=== PATIENT | male | born 1995 | race Caucasian/White ===

== ENCOUNTER 2016-11-12 22:29 | Emergency (ER) | payer OTHER ==
[2016-11-12] MEDS ORDERED: ACETAMINOPHEN 500 MG TAB PO ONE (22:53)
[2016-11-12] MEDS ORDERED: NS 1,000 ML IV ONE (22:53)
[2016-11-12 23:40] LABS: % IMMATURE GRANULYOCYTES 0.2 % (0.0-1.1); ABSOLUTE IMMATURE GRANULOCYTES 0.01 10^3/uL (0.00-0.10); ADD DIFF? NO; ADD MORPH? NO; ADD SCAN? NO; ATYPICAL LYMPHOCYTE FLAG 0 (0-99); FRAGMENT RBC FLAG 0 (0-99); HEMATOCRIT 42.2 % (40.0-51.0); HEMOGLOBIN 15.1 g/dL (13.7-17.5); LEFT SHIFT FLG 30 (0-99); LIPEMIA HEMOLYSIS FLAG 90 (0-99); MEAN CELL HEMOGLOBIN 31.4 pg (27.9-34.1); MEAN CELL HEMOGLOBIN CONCENTR. 35.8 g/dL (32.4-36.7); MEAN CELL VOLUME 87.7 fL (81.5-99.8); PLATELET CLUMPS FLAG 0 (0-99); PLATELET COUNT 143 10^3/uL (150-400); RED BLOOD CELL COUNT 4.81 10^6/uL (4.40-6.38); RED CELL DISTRIBUTION WIDTH 11.8 % (11.5-15.2)
[2016-11-12 23:50] LABS: ANION GAP 11 mEq/L (8-16); CALCIUM 9.3 mg/dL (8.5-10.4); CARBON DIOXIDE 24 mEq/l (22-31); CHLORIDE 98 mEq/L (97-110); CREATININE 0.9 mg/dL (0.7-1.3); GLOMERULAR FILTRATION RATE > 60; GLUCOSE 124 mg/dL (70-100); POTASSIUM 3.8 mEq/L (3.5-5.2); SODIUM 133 mEq/L (134-144)
--- NOTE | 2016-11-13 00:11 | EDPHY ---
H & P Stated Complaint: Fever, Neck pain, Headache Time Seen by Provider: 11/12/16 22:42 HPI/ROS: Chief Complaint: Fever, headache, neck pain HPI: 21-year-old male whose had 2 days of headache, fever to 103, pain in his neck and neck tightness. Pain at worst is about an 8/10. He did take 2 aspirin earlier today with minimal relief. Has had some dizziness. No nausea or vomiting. No vision or hearing changes. Denies any head trauma or other injuries. No ear pain. No sore throat pain. No known ill exposures. No skin rash. My ROS PMH: None Social History: No smoking, occasional alcohol, no recreational drug use Family History: non-contributory Physical Exam: Gen: Awake, Alert, No Distress HEENT: Nose: no rhinorrhea Eyes: PERRLA, EOMI Mouth: Moist mucosa oropharynx is negative Neck: Mild meningismus, no JVD Chest: nontender, lungs clear to auscultation Heart: S1, S2 normal, no murmur Abd: Soft, non-tender, no guarding Back: no CVA tenderness, no midline tenderness Ext: no edema, non-tender Skin: no rash Neuro: CN II-XII intact, Sensation grossly intact, Strength 5/5 in bilateral upper and lower extremities - Personal History Current Tetanus/Diphtheria Vaccine: Yes Current Tetanus Diphtheria and Acellular Pertussis (TDAP): Yes - Medical/Surgical History Hx Asthma: No Hx Chronic Respiratory Disease: No Hx Diabetes: No Hx Cardiac Disease: No Hx Renal Disease: No Hx Cirrhosis: No Hx Alcoholism: No Hx HIV/AIDS: No Hx Splenectomy or Spleen Trauma: No Other PMH: PMH: denies. PSH: denies - Social History Smoking Status: Never smoked Constitutional: Initial Vital Signs Temperature (C) 39.3 C H 11/12/16 22:36 Heart Rate 88 11/12/16 22:36 Respiratory Rate 18 11/12/16 22:36 Blood Pressure 126/71 H 11/12/16 22:36 O2 Sat (%) 97 11/12/16 22:36 O2 Delivery Mode Room Air Allergies/Adverse Reactions: No Known Allergies Allergy (Unverified 11/12/16 22:39) Home Medications: Medication Instructions Recorded NK [No Known Home Meds] 11/12/16 Medical Decision Making - Diagnostics Imaging Results: Imaging Impressions Head CT 11/12/16 22:54 Impression: 1. Normal CT brain without contrast. 2. Consider MRI of the brain without and with contrast enhancement, if there is continued clinical concern. Findings and recommendations discussed with Emergency Department physician, Tl Rodriguez MD at 23:15 hour, 11/12/2016. Final report concurs with initial preliminary interpretation. Imaging: Discussed imaging studies w/ comedian Radiologist Procedures: Procedure: Lumbar puncture. Indication: Fever, headache After verbal informed consent from patient explaining the risks including infection, bleeding, and neurologic damage, a lumbar puncture was performed after the patient was prepped and draped in the usual fashion. The back was anesthetized with 1% lidocaine. Approximately 4 cc of clear fluid was obtained. Opening pressure was not obtained. There were no complications. The procedure was performed by myself. ED Course/Re-evaluation: 21-year-old presenting with a temperature of 39, neck stiffness, headache, given the patient's clinical scenario is concerning for the possibility of meningitis or encephalitis. Will obtain a CT scan to rule out space-occupying lesion or bleed. He will then require lumbar puncture to for CSF evaluation. Patient has been given a g of Tylenol and a L fluid as well. Patient is improved after Tylenol and ibuprofen fluids. CSF is negative. CBC is normal. CT scan of brain is negative. Patient's symptoms consistent with the viral illness. He has been instructed to alternate ibuprofen and acetaminophen as needed for fevers and chills. Drink plenty of fluids. Follow up with [facility] in 2-3 days for re-evaluation. - Data Points Laboratory Results: Laboratory Results 11/12/16 23:30 11/12/16 23:30 11/13/16 11/12/16 11/12/16 00:50 23:30 23:30 WBC 4.63 10^3/uL 10^3/uL (3.80-9.50) RBC 4.81 10^6/uL 10^6/uL (4.40-6.38) Hgb 15.1 g/dL g/dL (13.7-17.5) Hct 42.2 % % (40.0-51.0) MCV 87.7 fL fL (81.5-99.8) MCH 31.4 pg pg (27.9-34.1) MCHC 35.8 g/dL g/dL (32.4-36.7) RDW 11.8 % % (11.5-15.2) Plt Count 143 10^3/uL L 10^3/uL (150-400) MPV 11.0 fL fL (8.7-11.7) Neut % (Auto) 75.4 % H % (39.3-74.2) Lymph % (Auto) 7.8 % L % (15.0-45.0) [place] % (Auto) 16.0 % H % (4.5-13.0) Eos % (Auto) 0.0 % L % (0.6-7.6) Baso % (Auto) 0.6 % % (0.3-1.7) Nucleat RBC Rel Count 0.0 % % (0.0-0.2) Absolute Neuts (auto) 3.49 10^3/uL 10^3/uL (1.70-6.50) Absolute Lymphs (auto) 0.36 10^3/uL L 10^3/uL (1.00-3.00) Absolute Monos (auto) 0.74 10^3/uL 10^3/uL (0.30-0.80) Absolute Eos (auto) 0.00 10^3/uL L 10^3/uL (0.03-0.40) Absolute Basos (auto) 0.03 10^3/uL 10^3/uL (0.02-0.10) Absolute Nucleated RBC 0.00 10^3/uL 10^3/uL (0-0.01) Immature Gran % 0.2 % % (0.0-1.1) Immature Gran # 0.01 10^3/uL 10^3/uL (0.00-0.10) Sodium 133 mEq/L L mEq/L (134-144) Potassium 3.8 mEq/L mEq/L (3.5-5.2) Chloride 98 mEq/L mEq/L (97-110) Carbon Dioxide 24 mEq/l mEq/l (22-31) Anion Gap 11 mEq/L mEq/L (8-16) BUN 7 mg/dL mg/dL (7-23) Creatinine 0.9 mg/dL mg/dL (0.7-1.3) Estimated GFR > 60 Glucose 124 mg/dL H mg/dL (70-100) Calcium 9.3 mg/dL mg/dL (8.5-10.4) CSF Tube Number 4 CSF Appearance CLEAR (CLEAR) CSF Color COLORLESS (COLORLESS) CSF Supernatant TNP CSF WBC 2 /mm3 /mm3 (0-5) CSF RBC 0 /mm3 /mm3 (0-0) CSF Glucose 51 mg/dL mg/dL (50-75) CSF Total Protein 49 mg/dL mg/dL (12-60) Microbiology Results: MICROBIOLOGY 11/13/16 00:50 Cerebral Spinal Fluid Gram Stain - Final Medications Given: Discontinued Medications Acetaminophen (Tylenol) 1,000 mg PO EDNOW ONE Stop: 11/12/16 22:54 Last Admin: 11/12/16 23:57 Dose: 1,000 mg Sodium Chloride (Ns) 1,000 mls @ 0 mls/hr IV ONCE ONE PRN Reason: Wide Open Stop: 11/12/16 22:54 Last Admin: 11/12/16 23:58 Dose: 1,000 mls Departure - Departure Disposition: Home, Routine, Self-Care Clinical Impression: Fever, Headache Condition: Good Instructions: Viral Syndrome (ED), Fever in Adults (ED) Additional Instructions: Alternate acetaminophen with ibuprofen every 3-4 hours for fevers, chills, aches or pains. Make sure you drink plenty of fluids. [facility] in 2-3 days for re-evaluation if symptoms are not improving Return to the emergency depart for uncontrolled fever, nausea, vomiting, cough, or any other concerns. Referrals: [facility] [Clinic] - As per Instructions
[2016-11-13 01:06] LABS: PROTEIN, CSF 49 mg/dL (12-60)
[2016-11-13 01:11] LABS: CSF APPEARANCE CLEAR (CLEAR); CSF COLOR COLORLESS (COLORLESS); WBC, CSF 2 /mm3 (0-5)
[2016-11-13 01:24] VITALS: BP 114/58; PULSE 70; RESP 16; TEMP 100.4; O2SAT 95
== END 2016-11-13 01:50 | disposition home or self-care (01) ==
PROC: 009U3ZX Drainage of Spinal Canal, Percutaneous Approach, Diagnostic (ICD-10-PCS; principal; 2016-11-12)
DX: R51 Headache (principal); R50.9 Fever, unspecified; R42 Dizziness and giddiness

== ENCOUNTER 2017-01-29 20:05 | Emergency (ER) | payer OTHER ==
[2017-01-29 20:18] VITALS: O2SAT 96
--- NOTE | 2017-01-29 20:24 | EDPHY ---
H & P Stated Complaint: Right sided pressure in arm and leg. HPI/ROS: HPI CHIEF COMPLAINT: "My leg is going to explode" HISTORY OF PRESENT ILLNESS: This patient is a 21-year-old male, otherwise healthy denies having any significant medical history he reports that he did LSD at 1:00 p.m. today and then went for bike ride around 5:00 p.m. today he noticed some pulsating throughout his body. Reports that his chest was pulsating very hard but no pain. Additionally he reports that his right hand right arm will pulsating any noticed a very prominent in his thigh. He felt thigh pulsation. Denies pain. He decided come the emergency room for this. He appears anxious. He states his main complaint is pulsating right side of his body. Past Medical History: Denies significant medical history Past Surgical History: Denies significant surgical history Social History: Denies daily use drugs alcohol tobacco products Family History: Noncontributory ROS REVIEW OF SYSTEMS: A comprehensive 10 point review of systems is otherwise negative aside from elements mentioned in the history of present illness. Exam Constitutional appears well nontoxic, triage nursing summary reviewed, vital signs reviewed, awake/alert. Eyes normal conjunctivae and sclera, EOMI, PERRLA. HENT normal inspection, atraumatic, moist mucus membranes, no epistaxis, neck supple/ no meningismus, no raccoon eyes. Respiratory clear to auscultation bilaterally, normal breath sounds, no respiratory distress, no wheezing. Cardiovascular rate normal, regular rhythm, no murmur, no edema, distal pulses normal. Gastrointestinal soft, non-tender, no rebound, no guarding, normal bowel sounds, no distension, no pulsatile mass. Genitourinary no CVA tenderness. Musculoskeletal no midline vertebral tenderness, full range of motion, no calf swelling, no tenderness of extremities, no meningismus, good pulses, neurovascularly intact. Right upper extremity and right lower extremity are neurovascularly intact. Good distal pulses. Good cap refill. Warm extremities. Specifically on the right side there is a good femoral pulse. 2+ , good distal pulse. Good pedal pulse. Good cap refill. Warm extremity. Full range of motion. On the right upper extremity arm there is a good radial pulse. Good sponsorship coordinator strength. Good sensation. Good neurological strength. Skin pink, warm, & dry, no rash, skin atraumatic. Neurologic awake, alert and oriented x 3, AAOx3, moves all 4 extremities equally, motor intact, sensory intact, CN II-XII intact, normal cerebellar, normal vision, normal speech. Psychiatric normal mood/affect. Heme/Lymph/Immune no lymphadenopathy. Differential Diagnosis: Includes but is not limited to in a particular order acute LSD intoxication, DVT, electrolyte disturbance, cardiac arrhythmia, anxiety Medical Decision Making: Plan for this patient Doppler right and lower upper extremity. Basic blood work, electrolytes, IV fluids, IV Ativan for anxiety. EKG. Chest x-ray. Re-evaluate. Re-evaluation: EKG interpretation by me on record in [employer] system. Impression time of EKG 2123, this is sinus rhythm rate of 83. Diffuse ST elevation consistent with early repolarization pattern. I do not appreciate acute ischemic change on this EKG. Unremarkable EKG. Ultrasound Doppler of the right upper extremity right lower extremity showed no DVT. ED x-ray chest one view negative for acute cardiopulmonary disease unremarkable chest x-ray. 1207: I did re-evaluate this patient this time he tells me feels much better. His blood work, ultrasound, chest x-ray, EKG have been reviewed. Do not appreciate anything acute specifically I do not have a great explanation for why he thought his right arm right leg were going to explode. He is neurovascularly intact. There is no focal weakness. There is no numbness or tingling. No focal weakness. Neurological exam is unremarkable. Patient feels much better would like to be discharged. He had extensive workup for sensation of pressure and fullness and arm and leg were going to be a exploding. He has good pulses. There is no evidence of compartment syndrome on exam. His blood work is reassuring. He did have an elevated slightly CK of 900 he did go for bike ride this most likely explains his elevated CK. He did receive fluids here. He has no chest pain or shortness of breath. EKG is nonischemic. Chest x-ray unremarkable. Ultrasound Dopplers of both upper and lower extremity are negative. He feels better recommend return precautions. He understands return emergency room if develops any worsening symptoms questions concerns. I question if him doing LSD made him feel he had a sensation that the right side of his body was going to explode. Source: Patient - Personal History Current Tetanus/Diphtheria Vaccine: Unsure Current Tetanus Diphtheria and Acellular Pertussis (TDAP): Unsure - Medical/Surgical History Hx Asthma: No Hx Chronic Respiratory Disease: No Hx Diabetes: No Hx Cardiac Disease: No Hx Renal Disease: No Hx Cirrhosis: No Hx Alcoholism: No Hx HIV/AIDS: No Hx Splenectomy or Spleen Trauma: No Other PMH: PMH: denies. PSH: denies - Social History Smoking Status: Never smoked Constitutional: Initial Vital Signs Temperature (C) 36.8 C 01/29/17 20:13 Heart Rate 96 01/29/17 20:13 Respiratory Rate 14 01/29/17 20:13 Blood Pressure 143/89 H 01/29/17 20:13 O2 Sat (%) 96 01/29/17 20:13 O2 Delivery Mode Room Air Allergies/Adverse Reactions: No Known Allergies Allergy (Unverified 11/12/16 22:39) Home Medications: Medication Instructions Recorded NK [No Known Home Meds] 11/12/16 Medical Decision Making - Diagnostics Imaging Results: Imaging Impressions Chest X-Ray 01/29/17 20:40 Impression: Normal portable exam. Extremity Venous Study 01/29/17 20:40 Impression: No evidence of deep vein thrombosis in the right lower extremity. Results called and discussed with Alonzo Sena MD, at 01/29/2017 22:00 Extremity Venous Study 01/29/17 20:41 Impression: No evidence of vein thrombosis in the right arm. Results called and discussed with Alonzo Sena MD, at 01/29/2017 22:01 - Data Points Laboratory Results: Laboratory Results 01/29/17 21:10 01/29/17 21:10 01/29/17 01/29/17 01/29/17 21:10 21:10 21:10 WBC RBC Hgb Hct MCV MCH MCHC RDW Plt Count MPV Neut % (Auto) Lymph % (Auto) [place] % (Auto) Eos % (Auto) Baso % (Auto) Nucleat RBC Rel Count Absolute Neuts (auto) Absolute Lymphs (auto) Absolute Monos (auto) Absolute Eos (auto) Absolute Basos (auto) Absolute Nucleated RBC Immature Gran % Immature Gran # PT 14.4 SEC SEC (12.0-15.0) INR 1.13 (0.83-1.16) APTT 23.9 SEC SEC (23.0-38.0) D-Dimer < 0.27 ug/mLFEU ug/mLFEU (0.00-0.50) Sodium 140 mEq/L mEq/L (134-144) Potassium 4.3 mEq/L mEq/L (3.5-5.2) Chloride 98 mEq/L mEq/L (97-110) Carbon Dioxide 24 mEq/l mEq/l (22-31) Anion Gap 18 mEq/L H mEq/L (8-16) BUN 11 mg/dL mg/dL (7-23) Creatinine 0.8 mg/dL mg/dL (0.7-1.3) Estimated GFR > 60 Glucose 88 mg/dL mg/dL (70-100) Calcium 10.3 mg/dL mg/dL (8.5-10.4) Magnesium 1.6 mg/dL mg/dL (1.6-2.3) Total Bilirubin 1.2 mg/dL mg/dL (0.1-1.4) Conjugated Bilirubin 0.2 mg/dL mg/dL (0.0-0.5) Unconjugated Bilirubin 1.0 mg/dL mg/dL (0.0-1.1) AST 38 IU/L IU/L (17-59) ALT 39 IU/L IU/L (21-72) Alkaline Phosphatase 73 IU/L IU/L (38-126) Creatine Kinase 939 IU/L H IU/L (0-224) CK-MB (CK-2) Fraction 1.57 ng/mL ng/mL (0.00-3.19) CK-MB (CK-2) % 0.2 % % (0.0-4.0) Creatine Kinase Interp NEGATIVE (NEGATIVE) Troponin I < 0.012 ng/mL ng/mL (0.000-0.034) NT-Pro-B Natriuret Pep 16 pg/mL pg/mL (0-125) Total Protein 8.3 g/dL H g/dL (6.3-8.2) Albumin 4.5 g/dL g/dL (3.5-5.0) Lipase 78 IU/L IU/L (23-300) Urine Opiates Screen NEGATIVE (NEGATIVE) Urine Barbiturates NEGATIVE (NEGATIVE) Ur Phencyclidine Scrn NEGATIVE (NEGATIVE) Ur Amphetamine Screen NEGATIVE (NEGATIVE) U Benzodiazepines Scrn NEGATIVE (NEGATIVE) Urine Cocaine Screen NEGATIVE (NEGATIVE) U Marijuana (THC) Screen NEGATIVE (NEGATIVE) 01/29/17 21:10 WBC 12.89 10^3/uL H 10^3/uL (3.80-9.50) RBC 5.26 10^6/uL 10^6/uL (4.40-6.38) Hgb 16.5 g/dL g/dL (13.7-17.5) Hct 44.5 % % (40.0-51.0) MCV 84.6 fL fL (81.5-99.8) MCH 31.4 pg pg (27.9-34.1) MCHC 37.1 g/dL H g/dL (32.4-36.7) RDW 11.9 % % (11.5-15.2) Plt Count 228 10^3/uL 10^3/uL (150-400) MPV 10.6 fL fL (8.7-11.7) Neut % (Auto) 83.7 % H % (39.3-74.2) Lymph % (Auto) 11.8 % L % (15.0-45.0) [place] % (Auto) 3.9 % L % (4.5-13.0) Eos % (Auto) 0.0 % L % (0.6-7.6) Baso % (Auto) 0.3 % % (0.3-1.7) Nucleat RBC Rel Count 0.0 % % (0.0-0.2) Absolute Neuts (auto) 10.79 10^3/uL H 10^3/uL (1.70-6.50) Absolute Lymphs (auto) 1.52 10^3/uL 10^3/uL (1.00-3.00) Absolute Monos (auto) 0.50 10^3/uL 10^3/uL (0.30-0.80) Absolute Eos (auto) 0.00 10^3/uL L 10^3/uL (0.03-0.40) Absolute Basos (auto) 0.04 10^3/uL 10^3/uL (0.02-0.10) Absolute Nucleated RBC 0.00 10^3/uL 10^3/uL (0-0.01) Immature Gran % 0.3 % % (0.0-1.1) Immature Gran # 0.04 10^3/uL 10^3/uL (0.00-0.10) PT INR APTT D-Dimer Sodium Potassium Chloride Carbon Dioxide Anion Gap BUN Creatinine Estimated GFR Glucose Calcium Magnesium Total Bilirubin Conjugated Bilirubin Unconjugated Bilirubin AST ALT Alkaline Phosphatase Creatine Kinase CK-MB (CK-2) Fraction CK-MB (CK-2) % Creatine Kinase Interp Troponin I NT-Pro-B Natriuret Pep Total Protein Albumin Lipase Urine Opiates Screen Urine Barbiturates Ur Phencyclidine Scrn Ur Amphetamine Screen U Benzodiazepines Scrn Urine Cocaine Screen U Marijuana (THC) Screen Medications Given: Discontinued Medications Sodium Chloride (Ns) 1,000 mls @ 0 mls/hr IV EDNOW ONE; Wide Open PRN Reason: Protocol Stop: 01/29/17 20:40 Last Admin: 01/29/17 21:16 Dose: 1,000 mls Sodium Chloride (Ns) 1,000 mls @ 0 mls/hr IV ONCE ONE PRN Reason: Wide Open Stop: 01/29/17 21:45 Last Admin: 01/29/17 22:23 Dose: 1,000 mls Lorazepam (Ativan Injection) 1 mg IVP EDNOW ONE Stop: 01/29/17 20:40 Last Admin: 01/29/17 21:17 Dose: 1 mg Departure - Departure Disposition: Home, Routine, Self-Care Clinical Impression: Anxiety, LSD reaction Condition: Good Instructions: Dehydration (ED), Anxiety (ED) Additional Instructions: 1. Return emergency room if develops any worsening symptoms questions or concerns. Referrals: NONE *PRIMARY CARE P,. [Primary Care Provider] - As per Instructions
[2017-01-29] MEDS ORDERED: LORazepam 2 MG/ML INJ IVP ONE (20:39)
[2017-01-29] MEDS ORDERED: NS 1,000 ML IV ONE ×2 (20:39→21:44)
[2017-01-29 21:25] LABS: PLATELET COUNT 228 10^3/uL (150-400)
--- NOTE | 2017-01-29 21:26 | CPEKG ---
Heart Rate: 83 RR Interval: 723 P-R Interval: 152 QRSD Interval: 90 QT Interval: 372 QTC Interval: 437 P [place]: 54 QRS [place]: 57 T Wave [place]: 48 EKG Severity - NORMAL ECG - EKG Impression: SINUS RHYTHM EKG Impression: ST ELEV, PROBABLE NORMAL EARLY REPOL PATTERN Electronically Signed By: Isa Mackenzie 03-Feb-2017 14:55:49
[2017-01-29 21:33] LABS: INR 1.13 (0.83-1.16); PROTIME(PATIENT) 14.4 SEC (12.0-15.0)
[2017-01-29 21:38] LABS: CREATINE KINASE 939 IU/L (0-224)
[2017-01-30 00:24] VITALS: BP 124/71; PULSE 82; RESP 16; TEMP 97.9
== END 2017-01-29 21:28 | disposition home or self-care (01) ==
DX: F41.9 Anxiety disorder, unspecified (principal); F16.10 Hallucinogen abuse, uncomplicated; E86.9 Volume depletion, unspecified
CPT/HCPCS: 80305; 96374; J2060